=== PATIENT | female | born 1950 | race Caucasian/White ===

== ENCOUNTER → 2024-04-17 13:46 | Outpatient (REF) | payer MEDICARE, MEDICAID, SELFPAY | LOC: WDC 13:46 | PROVIDERS: ATTENDING PHYSICIAN Physician Assistant Medical | DX: Z13.820 Encounter for screening for osteoporosis (principal); Z78.0 Asymptomatic menopausal state | CPT/HCPCS: 77063; 77067; 77080 ==

== ENCOUNTER → 2025-05-16 14:30 | Outpatient (REF) | payer MEDICARE, MEDICAID, SELFPAY | LOC: WDC 14:30 | PROVIDERS: ATTENDING PHYSICIAN Internal Medicine | DX: Z12.31 Encounter for screening mammogram for malignant neoplasm of breast (principal) | CPT/HCPCS: 77063; 77067 ==